=== PATIENT | female | born 1980 | race Caucasian/White ===

== ENCOUNTER 2016-12-27 09:31 | Inpatient (IN) | payer OTHER ==
[2016-12-26 13:25] VITALS: Ht 167.6 cm; Wt 90.0 kg
[2016-12-27] VITALS (15 sets, daily range): BP systolic 89–125; BP diastolic 45–96; PULSE 86–100; RESP 15–23
[~2016-12-27] VITALS: Ht 167.6 cm; Wt 90.0 kg
[~2016-12-27 09:31] MED LIST: CEFAZOLIN 1 GM INJ ONE; ROCURONIUM 50 MG INJ ONE
[2016-12-27] MEDS ORDERED: ROPIVACAINE 0.5 % 30 ML VIAL ONE (11:00)
[2016-12-27] MEDS ORDERED: FENTAnyl 50 MCG/ML VIAL ONE (11:03)
[2016-12-27] MEDS ORDERED: MIDAZOLAM 1 MG/ML 2 ML INJ ONE (11:03)
--- NOTE | 2016-12-27 11:23 | HPN ---
Date/Time of Note Date/Time of Note DATE: 12/27/16 TIME: 11:23 Interval H&P Admission Note Pt. seen H&P reviewed: No system changes SHAMEKA JIMENEZ MD Dec 27, 2016 11:23
[2016-12-27] MEDS ORDERED: POLYMYXIN/BACITRACIN 1L IRRIG ONE (12:24)
[2016-12-27] MEDS ORDERED: BACITRACIN/POLYMYXIN 28.35 GM OINT TOP ONE (12:24)
[2016-12-27] MEDS ORDERED: BUPIVACAINE 0.5% (SDV) 30 ML INJ ONE (12:24)
[2016-12-27] MEDS ORDERED: PHENYLephrine (100 MCG/ML) 5ML SYG ONE (12:54)
[2016-12-27] MEDS ORDERED: morphine 10 MG INJ ONE (14:23)
[2016-12-27] MEDS ORDERED: METOCLOPRAMIDE 10 MG INJ ONE (16:54)
[2016-12-27] MEDS ORDERED: ONDANSETRON 4 MG INJ ONE (16:54)
[2016-12-27] MEDS ORDERED: PROPOFOL 20 ML ONE (16:55)
[2016-12-27] MEDS ORDERED: ROCURONIUM 50 MG INJ ONE (16:55)
[2016-12-27] MEDS ORDERED: NEOSTIGMINE 3 MG/3 ML SYRINGE ONE (16:55)
[2016-12-27] MEDS ORDERED: GLYCOPYRROLATE 1 MG INJ ONE (16:55)
[2016-12-27] MEDS ORDERED: LIDOCAINE 2% (SDV) 5 ML INJ ONE (16:55)
[2016-12-27] MEDS ORDERED: ONDANSETRON 4 MG INJ IV PRN ×2 (17:30→18:00)
[2016-12-27] MEDS ORDERED: CEFAZOLIN 1 GM INJ IV SCH (17:30)
[2016-12-27] MEDS ORDERED: MEPERIDINE 25 MG INJ ONE (17:34)
[2016-12-27] MEDS ORDERED: HYDROmorphONE (0.2 MG/ML) 10ML SYG IV ONE (17:34)
--- NOTE | 2016-12-27 17:36 | SIPON ---
Date/Time of Note Date/Time of Note DATE: 12/27/16 TIME: 17:33 Operative Report Preoperative Diagnosis Left distal tibial pilon and fibula fracture Postoperative Diagnosis Left distal tibial pilon and fibula fracture Operation/Procedure Performed Left distal tibial pilon and fibula fracture open reduction internal fixation with allograft Surgeon Lamont Jimenez MD resident programs assistant Ji Lopez Anesthesia: general, other (pop/adductor block) Estimated blood loss: 50 - 100 ml's Transfusion Required none Specimen none Grafts/Implants Arthrex distal fibular locking plate, 3x 4.0 mm partially threaded screws Arthrex Arthrocell Allograft TT - 130 min at 250 mm Hg Complications none LAMONT JIMENEZ MD Dec 27, 2016 17:36
[2016-12-27] MEDS: morphine 1 MG/ML 30 ML (PCA) IV SCH (17:45)
[2016-12-27] MEDS ORDERED: MEPERIDINE 25 MG INJ IV PRN (18:00)
[2016-12-27] MEDS ORDERED: FENTAnyl 50 MCG/ML VIAL IV PRN (18:00)
[2016-12-27] MEDS ORDERED: morphine (1 MG/ML) 10ML SYRINGE IV PRN (18:00)
[2016-12-27] MEDS ORDERED: DIPHENHYDRAMINE 50 MG INJ IV PRN (18:00)
[2016-12-27] MEDS ORDERED: METOCLOPRAMIDE 10 MG INJ IV PRN (18:00)
[2016-12-27] MEDS ORDERED: NALOXONE (0.4 MG/ML) INJ IV PRN (18:00)
[2016-12-27] MEDS ORDERED: HYDROmorphONE (0.2 MG/ML) 10ML SYG IV PRN ×2 (18:00)
[2016-12-27] MEDS: CEFAZOLIN 2 GM/50 ML (PMX) 50 ML IVPB SCH (18:17)
--- NOTE | 2016-12-27 20:42 | RADRPT ---
PROCEDURE: Intraoperative imaging of the left ankle with fluoroscopy. CLINICAL INDICATION: Left ankle pain. Intraoperative. TECHNIQUE: 36 images of the left ankle were obtained in the operating room with an image intensifi er. No radiologist was in attendance. Fluoroscopy time is 2.1 minutes. COMPARISON: No prior study is available for comparison. FINDINGS: Surgical instruments are noted overlying the left ankle. Images demonstrate open reduction and internal fixation of a trimalleolar fracture with 2 screws in the posterior malleolus, a plate and multiple screws in the lateral malleolus and distal fibula, and 2 cannulated screws in the medial malleolus. IMPRESSION: 1. Intraoperative imaging of the left ankle. RPTAT: QQ .Austin Sandoval MD, MD Date Time Electronically viewed and signed by .Austin Sandoval MD, on 12/27/2016 20:42 .R/
[2016-12-27] MEDS: OXYCODONE/ACETAMINOPHEN (5/325) TAB PO PRN (21:32)
[2016-12-28] MEDS: morphine 1 MG/ML 30 ML (PCA) IV SCH ×3 (00:02→15:33)
[2016-12-28] MEDS: CEFAZOLIN 2 GM/50 ML (PMX) 50 ML IVPB SCH ×3 (01:55→17:10)
[2016-12-28] MEDS: DIPHENHYDRAMINE 25 MG CAP PO PRN ×2 (01:59→18:13)
[2016-12-28] MEDS: OXYCODONE/ACETAMINOPHEN (5/325) TAB PO PRN ×4 (04:03→16:06)
[2016-12-28] MEDS: morphine 10 MG INJ IV PRN ×3 (04:27→15:27)
[2016-12-28 04:59] VITALS: BP 117/62; RESP 22
[2016-12-28] MEDS: ASPIRIN 81 MG TAB PO SCH ×3 (06:24→20:08)
[2016-12-28 16:26] VITALS: BP 114/65; RESP 18
--- NOTE | 2016-12-28 17:42 | PN ---
Date/Time of Note Date/Time of Note DATE: 12/28/16 TIME: 17:42 Assessment/Plan Lines/Catheters IV Catheter Type (from Nrsg): Peripheral IV Jiménez in Place (from Nrsg): No Assessment/Plan Assessment/Plan POD# 1 s/p left tibial pilon and fibula ORIF - NWB to the LLE - PT to GT - continue iv and PO pain meds - ASA 81 mg po bid for 35 days for dvt prophylaxis E Meliza PHIPPS Subjective 24 Hr Interval Summary Still in significant pain today No f/c/n/v Exam/Review of Systems Vital Signs Vitals Vital Signs Date Time Temp Pulse Resp B/P Pulse Ox O2 Delivery O2 Flow Rate FiO2 12/30/16 07:49 97.9 75 20 110/55 100 12/28/16 08:00 Nasal Cannula 2.0 Intake and Output 12/29/16 12/29/16 12/30/16 15:00 23:00 07:00 Intake Total 700 ml 1100 ml Output Total 1100 ml 2000 ml Balance -400 ml -900 ml Exam Constitutional: alert, oriented, well developed Musculoskeletal: other (lle/ splint intact, toes wiggle, cr brisk, silt to the m/l/d/p/fdws, wound vac intact) SHAMEKA JIMENEZ MD Dec 28, 2016 17:42
[2016-12-28] MEDS: HYDROmorphONE 1 MG/ML SYG IV PRN ×2 (18:13→21:31)
[2016-12-28 19:45] VITALS: BP 122/58; RESP 18
[2016-12-28] MEDS: PREGABALIN 75 MG CAP PO SCH (20:08)
[2016-12-28] MEDS: oxyCODONE (CR) 10 MG TAB [oxyCONTIN] PO SCH (20:09)
[2016-12-28] MEDS: oxyCODONE 5 MG TAB PO PRN (23:34)
[2016-12-29] MEDS ORDERED: HYDROmorphONE 2 MG/ML SYG IV ONE (00:34)
[2016-12-29] MEDS: KETOROLAC 30 MG INJ IV PRN ×2 (00:47→16:27)
[2016-12-29] MEDS ORDERED: traMADol 50 MG TAB PO PRN (01:00)
[2016-12-29] MEDS: CEFAZOLIN 2 GM/50 ML (PMX) 50 ML IVPB SCH ×2 (01:20→10:02)
[2016-12-29 02:00] VITALS: BP 107/51; RESP 18
[2016-12-29 08:10] VITALS: BP 125/56; RESP 18
[2016-12-29] MEDS: oxyCODONE (CR) 10 MG TAB [oxyCONTIN] PO SCH ×2 (08:33→22:11)
[2016-12-29] MEDS: oxyCODONE 5 MG TAB PO PRN ×4 (08:34→20:40)
[2016-12-29] MEDS: ASPIRIN 81 MG TAB PO SCH ×2 (08:34→20:39)
[2016-12-29] MEDS: PREGABALIN 75 MG CAP PO SCH ×2 (08:34→20:39)
--- NOTE | 2016-12-29 08:41 | PN ---
Date/Time of Note Date/Time of Note DATE: 12/29/16 TIME: 08:41 Assessment/Plan Lines/Catheters IV Catheter Type (from Nrsg): Peripheral IV Jiménez in Place (from Nrsg): No Assessment/Plan Assessment/Plan POD# 2 s/p left tibial pilon and fibula ORIF - NWB to the LLE - PT to GT - PO pain meds and dc pain meds today - will fu on misha Jimenez MD Subjective 24 Hr Interval Summary Doing better. Pain is well controlled but still high. Denies any f/c/n/v Constitutional: improved Feeding: advancing diet Pain Control: mild Exam/Review of Systems Vital Signs Vitals Vital Signs Date Time Temp Pulse Resp B/P Pulse Ox O2 Delivery O2 Flow Rate FiO2 12/30/16 07:49 97.9 75 20 110/55 100 12/28/16 08:00 Nasal Cannula 2.0 Intake and Output 12/29/16 12/29/16 12/30/16 15:00 23:00 07:00 Intake Total 700 ml 1100 ml Output Total 1100 ml 2000 ml Balance -400 ml -900 ml Exam Constitutional: alert, oriented, well developed Musculoskeletal: other (lle/ splint intact, toes wiggle, cr brisk, silt to the m/l/d/p/fdws, incisional wound vac intact) SHAMEKA JIMENEZ MD Dec 29, 2016 08:41
[2016-12-29] MEDS: HYDROmorphONE 1 MG/ML SYG IV PRN ×3 (10:02→20:04)
[2016-12-29 19:30] VITALS: BP 113/58; RESP 18
[2016-12-30] MEDS: oxyCODONE 5 MG TAB PO PRN ×3 (00:48→14:37)
[2016-12-30] MEDS: KETOROLAC 30 MG INJ IV PRN ×3 (00:59→18:32)
[2016-12-30] MEDS: HYDROmorphONE 1 MG/ML SYG IV PRN ×4 (01:45→17:31)
[2016-12-30 02:05] VITALS: BP 130/69; RESP 18
[2016-12-30 07:49] VITALS: BP 110/55; RESP 20
[2016-12-30] MEDS: oxyCODONE (CR) 10 MG TAB [oxyCONTIN] PO SCH (08:24)
[2016-12-30] MEDS: ASPIRIN 81 MG TAB PO SCH (08:24)
[2016-12-30] MEDS: PREGABALIN 75 MG CAP PO SCH ×2 (09:00→10:24)
--- NOTE | 2016-12-30 11:45 | DS ---
Date/Time of Note Date/Time of Note DATE: 12/30/16 TIME: 11:45 Discharge Summary Admission/Discharge Info Admit Date/Time Dec 27, 2016 at 09:31 Discharge Date/Time 12/30/16 Discharge Diagnosis s/p left tibial pilon and fibula ORIF Patient Condition: Good Procedures s/p left tibial pilon and fibula ORIF Hospital Course was admitted for pain control post op and now she is nvi and pain is better controlled Home Meds No Active Prescriptions or Reported Meds Follow-up Plan 2 days Primary Care Provider Not On Staff Doctor Time spent on discharge: > 30 minutes SHAMEKA JIMENEZ MD Dec 30, 2016 11:45
--- NOTE | 2016-12-30 11:45 | PN ---
Date/Time of Note Date/Time of Note DATE: 12/30/16 TIME: 11:45 Assessment/Plan Lines/Catheters IV Catheter Type (from Nrsg): Saline Lock Jiménez in Place (from Nrsg): No Assessment/Plan Assessment/Plan Subjective 24 Hr Interval Summary Doing much better today,pain is better controlled Constitutional: improved Pain Control: well controlled Exam/Review of Systems Vital Signs Vitals Vital Signs Date Time Temp Pulse Resp B/P Pulse Ox O2 Delivery O2 Flow Rate FiO2 12/30/16 07:49 97.9 75 20 110/55 100 12/28/16 08:00 Nasal Cannula 2.0 Intake and Output 12/29/16 12/29/16 12/30/16 15:00 23:00 07:00 Intake Total 700 ml 1100 ml Output Total 1100 ml 2000 ml Balance -400 ml -900 ml Exam Constitutional: alert, oriented, well developed Musculoskeletal: other (lle/ splint intact, toes wiggle, cr brisk, silt to the m/l/d/p/fdws) SHAMEKA JIMENEZ MD Dec 30, 2016 11:45
--- NOTE | 2016-12-30 12:16 | PDOCDIS ---
Discharge Instructions DIAGNOSIS Discharge Diagnosis left tibial pilon and fibula fracture CONDITION Patient Condition: Good HOME CARE INSTRUCTIONS: Diet Instructions: RegularSpecial Diet: RD ACTIVITY: Activity Restrictions: Avoid heavy lifting Do not Drive Do not operate Machinery Do not operate Power Tool Avoid Heavy Housework No Weight Bearing Bathing Restrictions: Shower FOLLOW UP/APPOINTMENTS Follow-up Plan 2 days at [facility] SCHOOL/WORK RELEASE May return to School/Work with: With Restrictions SHAMEKA JIMENEZ MD Dec 30, 2016 12:16
[2016-12-30] MEDS ORDERED: TRAM50TA2 PO (12:25)
[2016-12-30] MEDS ORDERED: ASPI81TA3 PO (12:25)
--- NOTE | 2016-12-31 13:46 | QN ---
Documentation Job number: [id number] SHAMEKA JIMENEZ MD Dec 31, 2016 13:46
--- NOTE | 2016-12-31 15:59 | OPR ---
DATE OF OPERATION: 12/27/2016 PREOPERATIVE DIAGNOSIS: Left distal tibial pilon fibular fracture. POSTOPERATIVE DIAGNOSES: Left distal tibial pilon fibular fracture. OPERATION PERFORMED: Left distal tibial pilon fibular fracture open reduction with internal fixatio n with allograft. SURGEON: Shameka Jimenez MD SOLE LEVELER: Ji Romero MD. ANESTHESIA: General with popliteal adductor block. ESTIMATED BLOOD LOSS: 100 mL. TRANSFUSION: None. SPECIMENS: None. IMPLANTS: One Arthrex distal fibula locking plate with three 4.0 partial threaded screws as well as Arthrex ArthroCell allograft. TOURNIQUET TIME: 130 minutes at 250 mmHg. COMPLICATIONS: None. INDICATIONS: The patient is a 36-year-old female who sustained a left distal tibia pilon and fibula r fracture approximately 3 weeks ago. Given the extensive displacement and injury pattern, patient was indicated for open reduction and internal fixation. RISK NOTE: The patient understood the risks and benefits of surgery in the patient's [place] including, but not limited to infection, bleeding, loss of limb, loss of life, need for future nyasia fernando, risk of osteoarthritis ____, risk of anesthesia, risk of deep vein thrombosis and pulmonary em bolism. Patient acknowledges ____ surgical consent form. OPERATIVE NOTE: The patient was met in the preoperative holding area and the operative extremity wa s marked and confirmed with patient and consent. The patient was brought to the operative theater a nd given preoperative antibiotics, preoperative anesthesia and preoperative regional block anesthesi a. The patient was then prepped and draped in the normal sterile fashion. Time-out was taken. All parties in the room agreed correct patient, extremity and procedure. OPERATIVE NOTE: Esmarch was brought up to 200 mmHg and incision was made initially with a posterola teral approach. In the interval between the peroneals and the flexor hallucis longus. The incisio n was brought down to the posterior tibial malleolar fracture which was identified and held in reduc tion while two 4.0 partial threaded screws with washers were placed across the fracture site showing a well reduced fracture fragment in both the AP, lateral and oblique plan of fluoroscopy. Attentio n was then turned to the fibular fracture which was extensively comminuted and given length of time it was out from the fracture, there was evidence of callus formation in a mal reduced position. The fibula was then debrided of all comminution and the fracture fragment was then brought back to jairo th using the push-pull technique with the screw proximal to the plate. Once tibial length, alignmen t and rotation was re-achieved the distal fibular locking was placed over the fibula and locked dist ally and then locked and affixed proximally with ArthroCell allograft placed at the site of the bony comminution bone loss. Once the fractures were well reduced in AP, lateral and oblique position, t he wound was irrigated thoroughly and attention was then turned to the medial malleolar side. The f racture was identified over the anterior ____ of the medial malleolus and once the fracture was redu herb it was held in place with a K-wire and one 4.0 partial threaded screw was placed across the frac ture fragment site. It was shown to be well reduced in the AP, lateral and oblique position. All w ounds were irrigated thoroughly and closed in layers with 2-0 Vicryl, followed by 3-0 Monocryl and 3 -0 nylon. A Prevena incision wound VAC was placed over the lateral incision to assist with wound cl osure and to prevent for seroma. The medial wound was then dressed with Xeroform, 4 x 4's, and trip le antibiotic ointment. All wounds were then dressed with 5 ABDs and placed in a well-padded short leg splint. At the end of the case, all sponge and needle counts were correct. The need for an orthopedic ophthalmic surgical assistant was essential for this case given the typical and tech nical nature of this case. An orthopedic ophthalmic surgical assistant was essential in providing fracture red uction while the plate and screws were placed as well as assistance in holding the limb in a proper position. Without the use of an orthopedic ophthalmic surgical assistant, the case would be extensively longer and more complex. Thus the orthopedic ophthalmic surgical assistant should be compensated accordingly. Dictated By: SHAMEKA JIMENEZ MD EIF/NTS Conf#: [id number] DID#: [id number] CC: DAISY ROMERO MD;*EndCC*
== END 2016-12-30 19:00 | disposition home or self-care (01) | DRG 494 ==
LOC: REC 09:31 → EDSTATUS 11:00 → MS1 19:00
PROVIDERS: ADMIT Orthopaedic Surgery; ATTEND Orthopaedic Surgery
PROC: 0QSK04Z Reposition Left Fibula with Internal Fixation Device, Open Approach (ICD-10-PCS; 2016-12-27)
PROC: 0QSH04Z Reposition Left Tibia with Internal Fixation Device, Open Approach (ICD-10-PCS; principal; 2016-12-27 11:00)
DX: S82.872A Displaced pilon fracture of left tibia, initial encounter for closed fracture (principal)
CPT/HCPCS: 73610; 82306; 97116; 97161; 97530; J0690; J1170; J1885; J2175; J2250; J2270; J2370; J2405; J2710; J2765; J2795; J3010